=== PATIENT | female | born 1980 | race African-American/Black ===

== ENCOUNTER 2016-03-20 19:50 | Emergency (ER) | payer BC, MEDICAID ==
[2016-03-20] MEDS ORDERED: POLYMYXIN B SULFATE/TMP OPH SOLN 10 ML OS ONE (20:23)
[2016-03-20] MEDS ORDERED: CLONIDINE HCL 0.2 MG TABLET PO ONE (20:23)
--- NOTE | 2016-03-20 20:29 | ER Document Report ---
ED Eye Complaint - General Chief Complaint: Drainage from Eye Stated Complaint: EYE DRAINAGE Time seen by provider: 20:20 Notes: Patient is a 35-year-old female that comes emergency department for chief complaint of left eye irritation and redness starting today, she states that both of her sons also have this she denies any visual loss, she does not wear visual correction, she denies injury to the eye, she denies any other symptoms. - Related Data Allergies/Adverse Reactions: lisinopril Allergy (Verified 03/20/16 21:02) Past Medical History - General Information source: Patient - Social History Smoking Status: Never Smoker Frequency of alcohol use: None Drug Abuse: None Lives with: Family Family History: Reviewed & Not Pertinent - Past Medical History Cardiac Medical History: Reports: Hx Hypertension Surgical Hx: Negative - Immunizations Immunizations up to date: Yes Hx Diphtheria, Pertussis, Tetanus Vaccination: Yes Review of Systems - Review of Systems Constitutional: No symptoms reported EENT: See HPI Cardiovascular: No symptoms reported Respiratory: No symptoms reported Gastrointestinal: No symptoms reported Genitourinary: No symptoms reported Female Genitourinary: No symptoms reported Musculoskeletal: No symptoms reported Skin: No symptoms reported Hematologic/Lymphatic: No symptoms reported Neurological/Psychological: No symptoms reported Physical Exam - Vital signs Vitals: Temp Pulse Resp BP Pulse Ox 97.9 F 88 16 191/116 H 99 03/20/16 19:58 03/20/16 19:58 03/20/16 19:58 03/20/16 19:58 03/20/16 19:58 Interpretation: Normal - General General appearance: Appears well, Alert In distress: None - HEENT Head: Normocephalic, Atraumatic Eyes: Normal Conjunctiva: Injected - Right sclera injected, no discharge noted, no orbital or eyelid swelling, normal pupillary response, normal EOMs, no other abnormality Extraocular movements intact: Yes Eyelashes: Normal Pupils: PERRL Sinus: Normal Nasal: Normal Mouth/Lips: Normal Mucous membranes: Normal Pharynx: Normal Neck: Normal - Respiratory Respiratory status: No respiratory distress Chest status: Nontender Breath sounds: Normal Chest palpation: Normal - Cardiovascular Rhythm: Regular Heart sounds: Normal auscultation Murmur: No - Abdominal Inspection: Normal Distension: No distension Bowel sounds: Normal Tenderness: Nontender Organomegaly: No organomegaly - Back Back: Normal, Nontender - Extremities General upper extremity: Normal inspection, Nontender, Normal color, Normal ROM , Normal temperature General lower extremity: Normal inspection, Nontender, Normal color, Normal ROM , Normal temperature, Normal weight bearing. No: Sia's sign - Neurological Neuro grossly intact: Yes Cognition: Normal Orientation: AAOx4 [place] Coma Scale Eye Opening: Spontaneous [place]ana Coma Scale Verbal: Oriented [place] Coma Scale Motor: Obeys Commands Susana Coma Scale Total: 15 Speech: Normal Motor strength normal: LUE, RUE, LLE, RLE Sensory: Normal - Psychological Associated symptoms: Normal affect, Normal mood - Skin Skin Temperature: Warm Skin Moisture: Dry Skin Color: Normal Course - Re-evaluation Re-evalutation: Examination symptoms consistent with conjunctivitis, patient has 2 family members who have the same symptoms, patient will be treated with Polytrim antibiotics on discussed follow-up and return precautions. Patient noted to be significantly hypertensive, patient has blood pressure medication at home, patient was given clonidine, patient does not have a headache, chest pain, visual loss or changes, or urinary retention. Patient requesting to leave, agrees to take her blood pressure medications, check her blood pressure and follow-up closely with primary care, she already has an appointment reportedly. - Vital Signs Vital signs: Temp Pulse Resp BP Pulse Ox 97.9 F 81 16 184/116 H 99 03/20/16 19:58 03/20/16 21:09 03/20/16 21:09 03/20/16 21:09 03/20/16 21:09 Discharge - Discharge Clinical Impression: Uncontrolled hypertension Conjunctivitis Qualifiers: Conjunctivitis type: unspecified Laterality: left Qualified Code(s): H10.9 - Unspecified conjunctivitis Condition: Stable Disposition: HOME, SELF-CARE Additional Instructions: Your examination is consistent with conjunctivitis (pinkeye). Take the eyedrops as directed. Please resume the blood pressure medication, follow with primary care for additional management. Return to the emergency department for any concerning or worsening symptoms. Conjunctivitis You have an infection in your eye, commonly known as "pink eye." Conjunctivitis causes redness, mild discomfort, itching, and mattering on the eyelids. It is very contagious, so you must be careful to wash your hands after touching your face so you don't pass the infection on to others. Conjunctivitis is caused by both viruses and bacteria. It usually responds quickly to treatment with antibiotic drops. These should be placed in the eye as prescribed (usually every three to four hours while you're awake). If you wear contact lenses, don't put them in your eyes until the infection is cleared and you are no longer using the drops (unless your doctor advises you otherwise). Should you develop increasing eye pain, severe swelling, decreased vision, or fail to improve as expected, please return for re-examination. Prescriptions: Amlodipine Besylate [Norvasc 10 mg Tablet] 10 mg PO DAILY #30 tablet Polymyxin B Sulfate/Tmp [Polytrim Oph Soln 10 ml] 1 dose OP ASDIR PRN #1 bottle PRN Reason: Forms: Return to Work
[2016-03-20 21:26] VITALS: BP 184/116
== END 2016-03-20 21:00 | disposition home or self-care (01) ==
LOC: ER 19:50
DX: I10 Essential (primary) hypertension (principal); H10.9 Unspecified conjunctivitis
CPT/HCPCS: 99282; J3490

== ENCOUNTER 2016-03-26 03:53 | Emergency (ER) | payer SELFPAY ==
[2016-03-26] MEDS ORDERED: NORMAL SALINE 1000 ML 1,000 ML IV ONE (04:07)
[2016-03-26] MEDS ORDERED: HYDRALAZINE HCL 25 MG TABLET PO ONE (04:08)
--- NOTE | 2016-03-26 04:08 | ER Document Report ---
ED Blood Pressure Problem - General Chief Complaint: High Blood Pressure Stated Complaint: BLOOD PRESSURE PROBLEM/HEADACHE Mode of Arrival: Ambulatory Information source: Patient Notes: Pt is a 35 year old female who presents to the ER today for headache, elevated blood pressure, blurred vision and right eye pain. Patient states that she started having a headache about a week ago on does have hypertension has been taking amlodipine for it but states that she does not think it's working. She has not been able to see primary care provider and got this here in the emergency department, so she has not followed up with anyone. She admits to some intermittent chest pain that started approximately an hour ago when she realized her blood pressure was 170/104, also coming on the same time with the blurred vision and the right eye pain. She states that her headache starts in the left side of her neck and radiates up the back of her neck into the back of her scalp. She states she has had this type of headache before with her elevated blood pressure readings. She denies any numbness, tingling or weakness on one side of her body or the other. - Related Data Allergies/Adverse Reactions: lisinopril Allergy (Verified 03/20/16 21:02) Past Medical History - General Information source: Patient - Social History Smoking Status: Unknown if Ever Smoked Family History: Reviewed & Not Pertinent - Past Medical History Cardiac Medical History: Reports: Hx Hypercholesterolemia, Hx Hypertension Endocrine Medical History: Reports: Hx Diabetes Mellitus Type 2 - Immunizations Immunizations up to date: Yes Hx Diphtheria, Pertussis, Tetanus Vaccination: Yes Review of Systems - Review of Systems Constitutional: No symptoms reported EENT: No symptoms reported Cardiovascular: See HPI Respiratory: No symptoms reported Gastrointestinal: No symptoms reported Genitourinary: No symptoms reported Female Genitourinary: No symptoms reported Musculoskeletal: No symptoms reported Skin: No symptoms reported Hematologic/Lymphatic: No symptoms reported Neurological/Psychological: See HPI Physical Exam - Vital signs Vitals: Temp Pulse Resp BP Pulse Ox 98.2 F 94 16 169/109 H 97 03/26/16 04:09 03/26/16 04:09 03/26/16 04:09 03/26/16 04:09 03/26/16 04:09 - Notes Notes: PHYSICAL EXAMINATION: GENERAL: Appears uncomfortable, holding left side of neck, in no acute distress. HEAD: Atraumatic, normocephalic. EYES: Slightly light sensitive, Pupils equal round and reactive to light, extraocular movements intact, sclera anicteric, conjunctiva are normal. NECK: Normal range of motion, supple without lymphadenopathy LUNGS: CTAB and equal. No wheezes rales or rhonchi. HEART/CHEST: Nontender to palpation, Regular rate and rhythm without murmurs ABDOMEN: Soft, no tenderness. No guarding, no rebound BACK: no vertebral tenderness, normal ROM GI/: no CVA tenderness EXTREMITIES: Normal range of motion, no pitting edema. No cyanosis. NEUROLOGICAL: Cranial nerves grossly intact. Normal sensory/motor exams. PSYCH: Normal mood, normal affect. SKIN: Warm, Dry, normal turgor, no rashes or lesions noted Course - Re-evaluation Re-evalutation: 03/26/16 06:52 Patient feels much better after IV fluids and oral hydralazine for blood pressure. Her blood pressure has reduced to 146/95 at this time. Patient is no longer complaining of chest pain and states that her headache, eye pain and blurred vision is nearly gone. She has been resting in the room sleeping comfortably. At this time I did order Toradol to help more with her headache. I will place her on a different blood pressure medication to replace the amlodipine and have her follow up with a pcp. 03/26/16 07:13 case was consulted with Dr. Bajwa who agrees with care. - Vital Signs Vital signs: Temp Pulse Resp BP Pulse Ox 98.2 F 94 23 H 155/94 H 97 03/26/16 04:09 03/26/16 04:09 03/26/16 05:01 03/26/16 05:01 03/26/16 05:01 - Laboratory Result Diagrams: 03/26/16 04:42 03/26/16 04:42 Laboratory results interpreted by me: 03/26/16 03/26/16 04:42 04:42 RBC 5.58 H MCV 73 L MCH 22.9 L MCHC 31.2 L RDW 14.5 H Glucose 152 H Discharge - Discharge Clinical Impression: Uncontrolled hypertension Condition: Stable Disposition: HOME, SELF-CARE Instructions: Hydrochlorothiazide ([facility]) Additional Instructions: stop amlodipine. Return immediately for any new or worsening symptoms. Follow up with primary care provider, call tomorrow to make followup appointment. Prescriptions: Hydrochlorothiazide 25 mg PO BID #30 tablet Forms: Return to Work
[2016-03-26] MEDS ORDERED: ASPIRIN 81 MG TABLET, CHEWABLE PO ONE (04:09)
[2016-03-26 05:02] LABS: ABSOLUTE BASOPHILS # (AUTO) 0.1 10^3/uL (0.0-0.2); ABSOLUTE EOSINOPHILS # (AUTO) 0.4 10^3/uL (0.0-0.6); ABSOLUTE LYMPHOCYTES (AUTO) 2.3 10^3/uL (0.5-4.7); ABSOLUTE MONOCYTES (AUTO) 0.9 10^3/uL (0.1-1.4); BASOPHILS % (AUTO) 0.8 % (0-2); EOSINOPHILS % (AUTO) 5.7 % (0-6); HEMATOCRIT 40.8 % (36.0-47.0); HEMOGLOBIN 12.7 g/dL (12.0-15.5); HGB HCT DIFFERENCE -2.7; LYMPHOCYTES % (AUTO) 30.3 % (13-45); MEAN CORPUSCULAR HEMOGLOBIN 22.9 pg (27.0-33.4); MEAN CORPUSCULAR HGB CONC 31.2 g/dL (32.0-36.0); MEAN CORPUSCULAR VOLUME 73 fl (80-97); MONOCYTES % (AUTO) 11.2 % (3-13); RED BLOOD COUNT 5.58 10^6/uL (3.72-5.28); RED CELL DISTRIBUTION WIDTH 14.5 % (11.5-14.0); WHITE BLOOD COUNT 7.6 10^3/uL (4.0-10.5)
[2016-03-26 05:17] LABS: ALANINE AMINOTRANSFERASE 20 U/L (9-52); ALBUMIN 4.5 g/dL (3.5-5.0); ALKALINE PHOSPHATASE 69 U/L (38-126); ANION GAP 14 (5-19); ASPARTATE AMINO TRANSFERASE 18 U/L (14-36); BILIRUBIN,TOTAL 0.5 mg/dL (0.2-1.3); BLOOD UREA NITROGEN 17 mg/dL (7-20); CALCIUM 9.8 mg/dL (8.4-10.2); CARBON DIOXIDE 24 mmol/L (22-30); CHLORIDE 102 mmol/L (98-107); CREATININE RESULT 0.84 mg/dL (0.52-1.25); GLUCOSE 152 mg/dL (75-110); POTASSIUM 4.6 mmol/L (3.6-5.0); SODIUM 140.4 mmol/L (137-145)
[2016-03-26 05:18] LABS: CREATINE KINASE 45 U/L (30-135)
[2016-03-26 05:36] LABS: CREATINE KINASE MB 0.49 ng/mL (<4.55)
[2016-03-26 05:37] LABS: TROPONIN I < 0.012 ng/mL
[2016-03-26] MEDS ORDERED: KETOROLAC TROMETHAMINE INJ/PF 30 MG/1 ML SDV IV ONE (05:46)
[2016-03-26 07:19] VITALS: BP 152/78
--- NOTE | 2016-03-26 08:06 | EKG REPORT ---
SEVERITY:- ABNORMAL ECG - SINUS RHYTHM PROBABLE LEFT ATRIAL ABNORMALITY BORDERLINE INFEROLAT T WAVE ABNORMALITIES : Confirmed by: Mushtaq Zaragoza MD 26-Mar-2016 08:06:11
== END 2016-03-26 07:20 | disposition home or self-care (01) ==
LOC: ER 03:53
DX: I10 Essential (primary) hypertension (principal); R51 Headache; H53.8 Other visual disturbances; H57.11 Ocular pain, right eye; R07.9 Chest pain, unspecified; E11.9 Type 2 diabetes mellitus without complications; Z79.899 Other long term (current) drug therapy; Z88.8 Allergy status to other drugs, medicaments and biological substances
CPT/HCPCS: 93005; 99284; 96361; 96374; 36415; 82553; 82550; 85025; 80053; 84484; 71010; 93010; J1885; J7030

== ENCOUNTER 2016-07-20 20:53 | Emergency (ER) | payer SELFPAY | END 2016-07-21 03:00 | disposition left against medical advice (07) | LOC: ER 20:53 | DX: Z53.9 Procedure and treatment not carried out, unspecified reason (principal); R50.9 Fever, unspecified ==

== ENCOUNTER 2016-11-23 19:17 | Emergency (ER) | payer SELFPAY ==
[2016-11-23] MEDS ORDERED: AMLODIPINE BESYLATE 5 MG TABLET PO ONE (20:38)
--- NOTE | 2016-11-23 20:40 | ER Document Report ---
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 She states that they were taking have his blood pressure today when they told her that her blood pressure was 250 or 140. She states that she has been feeling very weak and dizzy with a headache over the last week or so. She states she is also been under a lot of stress. She states that she previously was diagnosed with hypertension and was on medication for. However she lost a significant amount of weight and her primary care physician told her that she did not need to take medication for blood pressure anymore. She states this was over one year ago and she has not been rechecked since then. TRAVEL OUTSIDE OF THE [place] IN LAST 30 DAYS: No - Related Data Allergies/Adverse Reactions: lisinopril Allergy (Verified 11/23/16 20:10) Past Medical History - Social History Chew tobacco use (# tins/day): No Frequency of alcohol use: None Drug Abuse: None - Past Medical History Cardiac Medical History: Reports: Hx Hypercholesterolemia, Hx Hypertension Endocrine Medical History: Reports: Hx Diabetes Mellitus Type 2 Renal/ Medical History: Denies: Hx Peritoneal Dialysis Past Surgical History: Reports: Hx Tubal Ligation - Immunizations Immunizations up to date: Yes Hx Diphtheria, Pertussis, Tetanus Vaccination: Yes Physical Exam - Vital signs Vitals: Temp Pulse Resp BP Pulse Ox 98.6 F 92 18 197/103 H 100 11/23/16 20:10 11/23/16 20:10 11/23/16 20:10 11/23/16 20:10 11/23/16 20:10 Course - Vital Signs Vital signs: Temp Pulse Resp BP Pulse Ox 98.6 F 92 18 197/103 H 100 11/23/16 20:10 11/23/16 20:10 11/23/16 20:10 11/23/16 20:10 11/23/16 20:10
[2016-11-23 21:31] LABS: ABSOLUTE BASOPHILS # (AUTO) 0.1 10^3/uL (0.0-0.2); ABSOLUTE EOSINOPHILS # (AUTO) 0.3 10^3/uL (0.0-0.6); ABSOLUTE LYMPHOCYTES (AUTO) 3.9 10^3/uL (0.5-4.7); ABSOLUTE MONOCYTES (AUTO) 0.5 10^3/uL (0.1-1.4); ABSOLUTE NEUT (AUTO) 3.5 10^3/uL (1.7-8.2); BASOPHILS % (AUTO) 0.9 % (0-2); HEMOGLOBIN 13.1 g/dL (12.0-15.5); HGB HCT DIFFERENCE -0.7; LYMPHOCYTES % (AUTO) 46.8 % (13-45); MEAN CORPUSCULAR HEMOGLOBIN 23.7 pg (27.0-33.4); MEAN CORPUSCULAR HGB CONC 32.8 g/dL (32.0-36.0); MEAN CORPUSCULAR VOLUME 72 fl (80-97); MONOCYTES % (AUTO) 6.3 % (3-13); RED BLOOD COUNT 5.53 10^6/uL (3.72-5.28); RED CELL DISTRIBUTION WIDTH 15.1 % (11.5-14.0); WHITE BLOOD COUNT 8.4 10^3/uL (4.0-10.5)
[2016-11-23 21:50] LABS: ALANINE AMINOTRANSFERASE 26 U/L (9-52); ALBUMIN 4.3 g/dL (3.5-5.0); ALKALINE PHOSPHATASE 61 U/L (38-126); ANION GAP 12 (5-19); ASPARTATE AMINO TRANSFERASE 14 U/L (14-36); BILIRUBIN,DIRECT 0.3 mg/dL (0.0-0.4); BILIRUBIN,TOTAL 0.4 mg/dL (0.2-1.3); BLOOD UREA NITROGEN 13 mg/dL (7-20); CALCIUM 9.8 mg/dL (8.4-10.2); CARBON DIOXIDE 25 mmol/L (22-30); CHLORIDE 101 mmol/L (98-107); CREATININE RESULT 0.95 mg/dL (0.52-1.25); GLUCOSE 133 mg/dL (75-110); POTASSIUM 4.1 mmol/L (3.6-5.0); SODIUM 137.8 mmol/L (137-145); TOTAL PROTEIN 7.9 g/dL (6.3-8.2)
[2016-11-23 21:52] LABS: APPEARANCE,URINE CLEAR; BILIRUBIN,URINE NEGATIVE (NEGATIVE); GLUCOSE, URINE NEGATIVE (NEGATIVE); KETONES,URINE NEGATIVE (NEGATIVE); LEUKOCYTE ESTERASE,URINE NEGATIVE (NEGATIVE); NITRITE,URINE NEGATIVE (NEGATIVE); PROTEIN,URINE NEGATIVE (NEGATIVE); URINE SPECIFIC GRAVITY 1.019; UROBILINOGEN,URINE NEGATIVE mg/dL (<2.0)
[2016-11-23 22:31] VITALS: BP 179/103
--- NOTE | 2016-11-23 22:33 | ER Document Report ---
ED General - General Mode of Arrival: Ambulatory Information source: Patient TRAVEL OUTSIDE OF THE [place] IN LAST 30 DAYS: No - HPI Onset: Other - Refer to HPI Notes <SARAH BERG - Last Filed: 11/23/16 23:41> <DAVIDYECENIAMART - Last Filed: 11/24/16 02:21> - General Chief Complaint: Dizziness Stated Complaint: DIZZINESS Time Seen by Provider: 11/23/16 20:38 Notes: Patient is a 35-year-old female patient in the emergency department for weakness , dizziness and headache. 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 Patient also complains of some blurry vision. Patient states that her blood pressure was taken today at work and it was 250/ 148. Patient states she was diagnosed with hypertension previously but was then taken off medication for such due to a large weight loss. Patient states this was over 1 year ago. Patient also states she has been taking phentermine for weight loss. Patient denies any chest pain, shortness of breath, diarrhea, vomiting, or nausea. (SARAH BERG) - Related Data Allergies/Adverse Reactions: lisinopril Allergy (Verified 11/23/16 20:10) Past Medical History - General Information source: Patient - Social History Smoking Status: Never Smoker Cigarette use (# per day): No Chew tobacco use (# tins/day): No Smoking Education Provided: No Frequency of alcohol use: None Drug Abuse: None Family History: None Patient has suicidal ideation: No Patient has homicidal ideation: No - Past Medical History Cardiac Medical History: Reports: Hx Hypercholesterolemia, Hx Hypertension Endocrine Medical History: Reports: Hx Diabetes Mellitus Type 2 Past Surgical History: Reports: Hx Tubal Ligation - Immunizations Immunizations up to date: Yes Hx Diphtheria, Pertussis, Tetanus Vaccination: Yes <SARAH BERG - Last Filed: 11/23/16 23:41> Review of Systems - Review of Systems Constitutional: See HPI, Weakness. denies: Fever EENT: See HPI, Blurred vision Cardiovascular: Dizziness. denies: Chest pain Respiratory: denies: Short of breath Gastrointestinal: denies: Diarrhea, Nausea, Vomiting Neurological/Psychological: See HPI, Headaches <SARAH BERG - Last Filed: 11/23/16 23:41> Physical Exam - Vital signs Interpretation: Hypertensive <SARAH BERG - Last Filed: 11/23/16 23:41> <MART WALTON - Last Filed: 11/24/16 02:21> - Vital signs Vitals: Temp Pulse Resp BP Pulse Ox 98.6 F 92 18 197/103 H 100 11/23/16 20:10 11/23/16 20:10 11/23/16 20:10 11/23/16 20:10 11/23/16 20:10 - Notes Notes: GENERAL: Alert, interacts well. No acute distress. HEAD: Normocephalic, atraumatic. EYES: Pupils equal, round, and reactive to light. Extraocular movements intact. ENT: Oral mucosa moist, tongue midline. NECK: Full range of motion. Supple. Trachea midline. LUNGS: Clear to auscultation bilaterally, no wheezes, rales, or rhonchi. No respiratory distress. HEART: Regular rate and rhythm. No murmurs, gallops, or rubs. ABDOMEN: Soft, non-tender. Non-distended. Bowel sounds present in all 4 quadrants. EXTREMITIES: Moves all 4 extremities spontaneously. No edema, radial and dorsalis pedis pulses 2/4 bilaterally. No cyanosis. NEUROLOGICAL: Alert and oriented x3. Normal speech. Cranial nerves II through XII grossly intact. Finger to nose and heel to oliver tests are normal. PSYCH: Normal affect, normal mood. SKIN: Warm, dry, normal turgor. No rashes or lesions noted. (SARAH BERG) Course - Laboratory Result Diagrams: 11/23/16 21:06 11/23/16 21:06 <SARAH BERG - Last Filed: 11/23/16 23:41> - Laboratory Result Diagrams: 11/23/16 21:06 11/23/16 21:06 <MART WALTON - Last Filed: 11/24/16 02:21> - Re-evaluation Re-evalutation: 11/23/16 22:45 CBC unremarkable, CMP shows slightly elevated glucose of 133, no renal failure, glucose is not fasting, urinalysis unremarkable. test negative. Blood pressures responding well to the amlodipine. Symptoms are improving. No evidence of acute stroke. Patient is admitting to using weight loss supplements including phentermine, this is likely increasing her blood pressure. Patient is aware that she needs to stop taking this, start taking the amlodipine, limit caffeine intake and follow-up with her primary care physician for recheck in 1 week. (MART WALTON) - Vital Signs Vital signs: Temp Pulse Resp BP Pulse Ox 98.6 F 80 18 179/103 H 98 11/23/16 20:10 11/23/16 22:31 11/23/16 20:10 11/23/16 22:31 11/23/16 22:31 - Laboratory Laboratory results interpreted by me: 11/23/16 11/23/16 21:06 21:06 RBC 5.53 H MCV 72 L MCH 23.7 L RDW 15.1 H Lymphocytes % 46.8 H Glucose 133 H Discharge <SARAH BERG - Last Filed: 11/23/16 23:41> <MART WALTON - Last Filed: 11/24/16 02:21> - Discharge Clinical Impression: Hypertension Qualifiers: Hypertension type: essential hypertension Qualified Code(s): I10 - Essential ( primary) hypertension Condition: Stable Disposition: HOME, SELF-CARE Additional Instructions: Your blood pressure is coming down nicely with the amlodipine. Please take the amlodipine every day as directed on your prescription. Please stop taking the weight loss supplement phentermine. Please follow-up with your primary care physician in 1 week for blood pressure recheck. Should you develop weakness, worsening blurry vision, any chest pain or any new or concerning symptoms please return to the emergency department. Prescriptions: Amlodipine Besylate 5 mg PO DAILY #30 tab Referrals: LILIANA DIA MD [ACTIVE STAFF] - Follow up as needed Scribe Attestation: 11/24/16 02:21 I personally performed the services described in the documentation, reviewed and edited the documentation which was dictated to the scribe in my presence, and it accurately records my words and actions. (MART WALTON) Scribe Documentation - Scribe Written by Araceli:: Araceli Singh 11/23/2016 23:40 acting as scribe for :: Steven <SARAH BERG - Last Filed: 11/23/16 23:41>
== END 2016-11-23 23:02 | disposition home or self-care (01) ==
LOC: ER 19:17
DX: I10 Essential (primary) hypertension (principal); R42 Dizziness and giddiness; R53.1 Weakness; R51 Headache; E78.00 Pure hypercholesterolemia, unspecified; E11.9 Type 2 diabetes mellitus without complications; Z98.51 Tubal ligation status
CPT/HCPCS: 36415; 80053; 81001; 81025; 85025; 99284

== ENCOUNTER 2017-04-28 16:41 | Emergency (ER) | payer OTHER ==
[2017-04-28] MEDS ORDERED: ACETAMINOPHEN 325 MG TABLET PO ONE (17:12)
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
[2017-04-28 19:29] VITALS: BP 142/101
== END 2017-04-28 19:29 | disposition home or self-care (01) ==
LOC: ER 16:41
DX: S69.91XA Unspecified injury of right wrist, hand and finger(s), initial encounter (principal); S89.91XA Unspecified injury of right lower leg, initial encounter; V49.9XXA Car occupant (driver) (passenger) injured in unspecified traffic accident, initial encounter; E78.00 Pure hypercholesterolemia, unspecified; I10 Essential (primary) hypertension; E11.9 Type 2 diabetes mellitus without complications; Z98.51 Tubal ligation status
CPT/HCPCS: 71260; 99284

== ENCOUNTER 2019-04-08 03:28 | Emergency (ER) | payer OTHER | END 2019-04-08 03:48 | disposition left against medical advice (07) | LOC: ER 03:28 | DX: Z53.21 Procedure and treatment not carried out due to patient leaving prior to being seen by health care provider (principal) ==

== ENCOUNTER → 2019-11-06 | Outpatient (CLI) | payer OTHER ==
[2019-11-06 10:54] LABS: ABSOLUTE EOSINOPHILS # (AUTO) 0.2 10^3/uL (0.0-0.6); ABSOLUTE LYMPHOCYTES (AUTO) 2.2 10^3/uL (0.5-4.7); ABSOLUTE MONOCYTES (AUTO) 0.7 10^3/uL (0.1-1.4); ABSOLUTE NEUT (AUTO) 3.7 10^3/uL (1.7-8.2); BASOPHILS % (AUTO) 0.5 % (0-2); EOSINOPHILS % (AUTO) 3.7 % (0-6); HEMATOCRIT 36.4 % (36.0-47.0); HEMOGLOBIN 11.9 g/dL (12.0-15.5); LYMPHOCYTES % (AUTO) 31.8 % (13-45); MEAN CORPUSCULAR HEMOGLOBIN 23.5 pg (27.0-33.4); MEAN CORPUSCULAR HGB CONC 32.7 g/dL (32.0-36.0); MEAN CORPUSCULAR VOLUME 72 fl (80-97); MONOCYTES % (AUTO) 10.6 % (3-13); PLATELET COUNT 307 10^3/uL (150-450); RED BLOOD COUNT 5.05 10^6/uL (3.72-5.28); RED CELL DISTRIBUTION WIDTH 15.8 % (11.5-14.0); SEGMENTED NEUTROPHILS % (AUTO) 53.4 % (42-78); TOTAL CELLS COUNTED % (AUTO) 100 %; WHITE BLOOD COUNT 6.8 10^3/uL (4.0-10.5)
[2019-11-06 11:29] LABS: ALBUMIN 3.9 g/dL (3.5-5.0); ALKALINE PHOSPHATASE 66 U/L (38-126); ANION GAP 8 (5-19); ASPARTATE AMINO TRANSFERASE 15 U/L (14-36); BILIRUBIN,DIRECT 0.2 mg/dL (0.0-0.4); BILIRUBIN,TOTAL 0.4 mg/dL (0.2-1.3); BLOOD UREA NITROGEN 13 mg/dL (7-20); CARBON DIOXIDE 25 mmol/L (22-30); CHLORIDE 104 mmol/L (98-107); CHOLESTEROL 176.52 mg/dL (0-200); GLUCOSE 254 mg/dL (75-110); POTASSIUM 4.6 mmol/L (3.6-5.0); TOTAL PROTEIN 7.3 g/dL (6.3-8.2); TRIGLYCERIDES 123 mg/dL (<150)
[2019-11-06 11:34] LABS: FREE T3 3.38 pg/mL (2.77-5.27); FREE T4 (FREE THYROXINE) 0.8 ng/dL (0.78-2.19)
[2019-11-06 11:41] LABS: DIRECT LDL 113 mg/dL (<100)
[2019-11-06 11:47] LABS: THYROID STIMULATING HORMONE 1.54 uIU/mL (0.47-4.68)
== END ==
LOC: OD 09:48
PROVIDERS: ATTEND Nurse Practitioner Family
DX: E11.65 Type 2 diabetes mellitus with hyperglycemia (principal); E01.0 Iodine-deficiency related diffuse (endemic) goiter; I10 Essential (primary) hypertension; Z68.36 Body mass index [BMI] 36.0-36.9, adult
CPT/HCPCS: 36415; 80053; 80061; 84439; 84443; 84481; 85025; 86376